=== PATIENT | female | born 1955 | race African-American/Black ===

== ENCOUNTER 2016-03-01 14:43 | Emergency (ER) | payer OTHER ==
[~2016-03-01] VITALS: Ht 152.4 cm; Wt 70.0 kg
[~2016-03-01 14:43] MED LIST: ACET-2047 PO; AMLO-218 PO; APR50 PO; BEN25 PO; BISA5TAB6 PO; CLON0.2T5 PO; DOCU-159 PO; FOLI-49 PO; IPRA4AER INHALATION; LANS30CA PO; RIF120L PO
[2016-03-01 15:01] VITALS: Ht 152.4 cm; Wt 70.0 kg
[2016-03-01 16:42] VITALS: BP 173/79; PULSE 73; RESP 20
--- NOTE | 2016-03-01 17:20 | ERD ---
ER Documentation Chief Complaint Date/Time DATE: 03/01/16 TIME: 17:14 Chief Complaint POSSIBLE BLEEDING FROM PERMA CATH RIGHT UPPER CHEST HPI This 61-year-old female was brought from dialysis for some bleeding around her permacath site in her right upper chest. The patient pressure dressing on the wound. She also comes with her vamp seamer. She is a chronic debilitated patient who is nonverbal. There are no other complaints her vital signs are completely stable at the dialysis center throughout transfer. Dialysis was completed according to the vamp seamer. ROS All systems reviewed and are negative except as per history of present illness. Medications Home Meds Active Scripts Rifampin* (Rifampin* Pediatric IV Syringe) 10 Mg/Ml Susp, 600 MG PO DAILY for 10 Days Prov:YOLI REED MD 12/28/15 Lansoprazole* (Lansoprazole*) 30 Mg Capsule.dr, 30 MG PO DAILY@06 for 28 Days Prov:YOLI REED MD 12/28/15 Reported Medications Docusate Sodium* (Docusate Sodium*) 100 Mg Capsule, 100 MG PO BID, #60 CAP 12/21/15 Hydralazine Hcl* (Hydralazine Hcl*) 50 Mg Tab, 50 MG PO Q8, #90 TAB 12/21/15 Folic Acid* (Folic Acid*) 1 Mg Tablet, 1 MG PO DAILY, TAB 12/21/15 Clonidine Hcl* (Clonidine Hcl*) 0.2 Mg Tablet, 0.2 MG PO Q4H Y for ELEVATED BLOOD PRESSURE, TAB 12/21/15 Albuterol/Ipratropium* (Combivent Respimat*) 20-100 Mcg/Inh - 4 Gm Aer.w.adap, 1 PUFF INHALATION QID, #1 INHALER 12/21/15 Amlodipine Besylate* (Norvasc*) 10 Mg Tablet, 10 MG PO DAILY, TAB 12/21/15 Bisacodyl* (Bisacodyl*) 5 Mg Tablet.dr, 10 MG PO DAILY Y for CONSTIPATION, TAB 12/04/15 Diphenhydramine Hcl* (Benadryl*) 25 Mg Cap, 25 MG PO Q6H Y for ITCHING, CAP 12/04/15 Acetaminophen* (Acetaminophen*) 650 Mg Tablet, 650 MG PO Q6H Y for PAIN AND OR ELEVATED TEMP, #30 TAB 12/04/15 Allergies Allergies: Coded Allergies: No Known Allergy (Unverified , 03/01/16) PMhx/Soc History of Surgery: Yes (RT UPPER CHEST DIALYSIS CATH ) Anesthesia Reaction: No Hx Neurological Disorder: Yes (ENCEPHALOPATHY ) Hx Respiratory Disorders: No Hx Cardiac Disorders: Yes (HTN) Hx Psychiatric Problems: No Hx Miscellaneous Medical Probl: Yes (ESRD, DIALYSIS (M,W,F), ANEMIA, DM TYPE 2) Hx Alcohol Use: No Hx Substance Use: No Hx Tobacco Use: No Smoking Status: Never smoker Physical Exam Vitals Vital Signs Date Time Temp Pulse Resp B/P Pulse Ox O2 Delivery O2 Flow Rate FiO2 03/01/16 16:42 73 20 173/79 99 Room Air 03/01/16 15:01 97.8 86 20 176/81 96 Physical Exam Const: [] No distress Head: Atraumatic Eyes: Normal Conjunctiva ENT: Normal External Ears, Nose and Mouth. Neck: Full range of motion..~ No meningismus. Resp: Clear to auscultation bilaterally Cardio: Regular rate and rhythm, no murmurs Chest wall: Right upper chest permacath site clean dry intact. I removed pressor dressing and there is no sign of current bleeding bleeding. There is no surrounding erythema or signs of infection. Abd: Soft, non tender, non distended. Normal bowel sounds Skin: No petechiae or rashes Back: No midline or flank tenderness Ext: No cyanosis, trace bilateral pedal edema Neur: Awake and alert, no new deficits Procedures/MDM Postdialysis bleeding around catheter site. Pressure dressing in place by dialysis. Her blood pressure dressing allowed off for an hour. No new bleeding occurred. I had intended to place a pursestring suture over do not believe this is necessary would be procedure that is not needed at this time. I saw this patient last time she had a similar problem at that time I did place per string suture. She now has a new catheter didn't location it appears to have no consultations currently. I spoke with Dr. Leach as courtesy call regarding the patient's recent dictation and care here. I'm discharging her back to her facility with instructions to follow-up with a primary care doctor as well as Dr. Alli Ochoa. Departure Diagnosis: Primary Impression: Hemorrhage from dialysis catheter Condition: Stable Patient Instructions: Dialysis Access Referrals: CANDIE LEACH MD Additional Instructions: Call your primary care doctor TOMORROW for an appointment during the next 1-2 days.See the doctor sooner or return here if your condition worsens before your appointment time. MARY DEE DO Mar 01, 2016 17:20
== END 2016-03-01 16:46 | disposition home or self-care (01) ==
LOC: E/R 14:43
DX: T82.838A Hemorrhage due to vascular prosthetic devices, implants and grafts, initial encounter (principal); I12.0 Hypertensive chronic kidney disease with stage 5 chronic kidney disease or end stage renal disease; N18.6 End stage renal disease; E11.9 Type 2 diabetes mellitus without complications; Y82.8 Other medical devices associated with adverse incidents; Z99.2 Dependence on renal dialysis
CPT/HCPCS: 99282

== ENCOUNTER 2017-11-19 19:31 | Inpatient (IN) | END 2017-12-12 15:28 | DRG 314 ==

== ENCOUNTER 2017-12-14 08:35 | Emergency (ER) | END 2017-12-14 09:09 | disposition home or self-care (01) ==

== ENCOUNTER 2017-12-17 20:08 | Inpatient (IN) | END 2017-12-28 19:07 | DRG 377 ==

== ENCOUNTER 2018-02-15 22:42 | Emergency (ER) | payer MEDICARE, OTHER ==
[~2018-02-15] VITALS: Ht 170.2 cm; Wt 64.1 kg
[~2018-02-15 22:42] MED LIST changes: -AMLO-218 PO; +APIX2.5T PO; -APR50 PO; -BEN25 PO; -BISA5TAB6 PO; +CARAS PO; -CLON0.2T5 PO; +GUAI-173 PO; +HYDR-4011 PO; +INSU100I27 SQ; +IPRA3AMP29 INHALATION; -IPRA4AER INHALATION; +LACT20SO2 PO; -LANS30CA PO; +LEVEM SQ; +LORA1TAB PO; +NEPH PO; +NYST1000 PO; +ONDA4TAB95 PO; +PANT40TA4 PO; +POLY17PO6 PO; -RIF120L PO
[2018-02-15 22:46] VITALS: Ht 170.2 cm; Wt 64.1 kg
--- NOTE | 2018-02-15 23:00 | ERD ---
ER Documentation Chief Complaint Chief Complaint ANOOP from [facility],K level 8.5,had dialysis today HPI 63-year-old woman with a history of end-stage kidney disease received her full hemodialysis today although potassium was elevated after hemodialysis and she was sent here for evaluation. Patient is nonverbal and has no complaints ROS All systems reviewed and are negative except as per history of present illness. Medications Home Meds Reported Medications Sucralfate* (Carafate*) 1 Gm/10 Ml Susp, 1 GM PO Q6 for ULCERS, EA 12/17/17 Multivit/Ca Carb/B Cmplx/Fa* (An-Kaylyn*) 1 Tab Tab, 1 TAB PO DAILY for SUPPLEMENT, TAB 12/17/17 Pantoprazole* (Pantoprazole*) 40 Mg Tablet.dr, 40 MG PO BID for GERD, TAB 12/17/17 Ondansetron Hcl* (Ondansetron Hcl*) 4 Mg Tablet, 4 MG PO Q4H PRN for NAUSEA AND OR VOMITING, TAB 12/17/17 Nystatin (Nystatin) 100,000 Unit/1 Ml Oral.susp, 5 ML PO QID, #60 ML GIVE 5ml BY MOUTH FOUR TIMES A DAY FOR ORAL THRUSHUNTIL 12/20/2017 23:59 SWISH, GARGLE AND SPIT AND SWALLOW ; MAY USE MOUTH SWAB AND RINSE WITH WATER 12/17/17 Hydrocodone/Acetaminophen ([place] 5-325 Tablet) 1 Each Tablet, 1 EACH PO q6h for PAIN, TAB GIVE 1 TABLET BY MOUTH EVERY 6HOURS PRN FOR PL 4-10/10 nte 3g/24H 12/17/17 Polyethylene Glycol* (Miralax*) 17 Gm Powd.pack, 8.5 GM PO DAILY for constipation, #30 PACKET 12/17/17 Lorazepam* (Lorazepam*) 1 Mg Tablet, 1 MG PO MWF, #30 TAB Give 1 tablet by mouth one time a day evry MON, WED, FRI for Anxiety m/b rying to pull outdialysis catheter, Give medication prior to Dialysis 12/17/17 Lactulose* (Lactulose*) 20 Gm/30 Ml Solution, 20 GM PO BID for CONSTIPATION, ML 12/17/17 Insulin Detemir (Levemir) 100 Unit/1 Ml Vial, 5 SQ QHS for DM INJECT 5units SQ QHS 12/17/17 Guaifenesin* (Tussin*) 100 Mg/5 Ml Syrup, 100 MG PO Q6 PRN for COUGH, ML GIVE 5ml BY MOUTH EVERY 4 HOURS NEEDED 12/17/17 Folic Acid* (Folic Acid*) 1 Mg Tablet, 1 MG PO DAILY for SUPPLEMENT, TAB 12/17/17 Ipratropium-Albuterol (Ipratropium-Albuterol) 0.5-3 Mg/3 Ml Ampul.neb, 3 ML INHALATION Q6 for SOB, #30 VIAL 12/17/17 Docusate Sodium* (Docusate Sodium*) 100 Mg Capsule, 100 MG PO DAILY for CONSTIPATION, #30 CAP 12/17/17 Apixaban* (Eliquis*) 2.5 Mg Tablet, 2.5 MG PO BID, TAB GIVE 1 TABLET BY MOUTH EVERY 12 HOURS FOR DVT PROPHYLAXIS 12/17/17 Acetaminophen* (Acetaminophen*) 650 Mg Tablet, 650 MG PO Q6H PRN for PAIN AND OR ELEVATED TEMP, #30 TAB GIVE 650MG BY MOUTH Q6H PRN FOR FEVER T>101F nte 3g/24 12/17/17 Insulin Detemir (Levemir Flextouch) 100 Unit/1 Ml Insuln.pen, 12 UNIT SQ QHS, EA 11/19/17 Allergies Allergies: Coded Allergies: sulfamethoxazole (Unverified Allergy, Unknown, 12/17/17) trimethoprim (Unverified Allergy, Unknown, 12/17/17) PMhx/Soc end-stage renal disease on hemodialysis Sunday, Sunday, Sunday; history of CVA, dysphagia, hyperlipidemia, diabetes, CHF, cardiomegaly, anxiety disorder, mental retardation, hypertension, bedbound state, history of multiple [id number]-[id number], GERD History of Surgery: No Anesthesia Reaction: No Hx Neurological Disorder: No Hx Respiratory Disorders: No Hx Cardiac Disorders: Yes (HTN) Hx Psychiatric Problems: No Hx Miscellaneous Medical Probl: Yes (Developmental delay, non-verbal. ) Hx Alcohol Use: No Hx Substance Use: No Hx Tobacco Use: No FmHx Family History: No diabetes Physical Exam Vitals Vital Signs Date Temp Pulse Resp B/P (MAP) Pulse Ox O2 O2 Flow FiO2 Time Delivery Rate 02/15/18 98.2 82 12 188/76 100 Room Air 23:43 (113) 02/15/18 97.8 76 18 178/76 99 22:46 (110) Physical Exam Const: No acute distress, at baseline, afebrile HEENT: [place] conjunctival, moist mucous membranes Resp: Clear to auscultation bilaterally Cardio: Regular rate and rhythm, no murmurs Abd: Soft, non tender, non distended. Skin: No petechiae or rashes, no lacerations Back: No midline or flank tenderness Ext: No cyanosis, or edema Neur: Eyes open, alert but nonverbal, pupils equal round reactive to light, she has bilateral lower extremity contractures and paresis to the right upper extremity with good movement to the left upper extremity Psych: Unable to assess Result Diagram: 02/15/18 2330 Results 24 hrs Laboratory Tests Test 02/15/18 23:30 White Blood Count Pending Red Blood Count Pending Hemoglobin Pending Hematocrit Pending Mean Corpuscular Volume Pending Mean Corpuscular Hemoglobin Pending Mean Corpuscular Hemoglobin Concent Pending Red Cell Distribution Width Pending Platelet Count Pending Mean Platelet Volume Pending Sodium Level 136 mmol/L Potassium Level 3.8 mmol/L Chloride Level 95 mmol/L Carbon Dioxide Level 32 mmol/L Anion Gap 9 Blood Urea Nitrogen 12 mg/dl Creatinine 3.20 mg/dl Est Glomerular Filtrat Rate mL/min 18 mL/min Glucose Level 107 mg/dl Calcium Level 9.4 mg/dl Total Bilirubin 0.0 mg/dl Direct Bilirubin 0.00 mg/dl Indirect Bilirubin 0.0 mg/dl Aspartate Amino Transf (AST/SGOT) 27 IU/L Alanine Aminotransferase (ALT/SGPT) 25 IU/L Alkaline Phosphatase 205 IU/L Total Protein 8.1 g/dl Albumin 4.0 g/dl Globulin 4.10 g/dl Albumin/Globulin Ratio 0.97 Lipase 256 U/L Procedures/MDM IV line was established patient was placed on front desk monitor rhythm strip revealed a sinus rhythm at about 70 bpm with upright P and T waves. Patient was afebrile EKG performed, read by me revealed a normal sinus rhythm at 70 bpm, normal axis, narrow QRS complex, no concerning ST elevations or depressions noted, diffuse T wave inversions CBC was unremarkable, electrolytes revealed normal potassium at 3.8, liver function tests unremarkable. Patient's earlier elevated potassium was most likely due to laboratory error, which is the #1 because of elevated potassium. She is at her baseline mental status and asymptomatic she will be [facility] back to [facility]. Departure Diagnosis: Primary Impression: Encounter for laboratory test Additional Impression: End stage kidney disease Condition: Good MARIA M KIM MD Feb 15, 2018 23:00
[2018-02-16 03:07] VITALS: BP 166/80; PULSE 81; RESP 13
== END 2018-02-16 03:17 | disposition home or self-care (01) ==
LOC: E/R 22:42
DX: N18.6 End stage renal disease (principal); I12.0 Hypertensive chronic kidney disease with stage 5 chronic kidney disease or end stage renal disease; E11.22 Type 2 diabetes mellitus with diabetic chronic kidney disease; I11.0 Hypertensive heart disease with heart failure; I50.9 Heart failure, unspecified; Z79.01 Long term (current) use of anticoagulants; Z79.4 Long term (current) use of insulin
CPT/HCPCS: 36415; 80053; 83690; 85025; 93005